=== PATIENT | male | born 1950 | race Hispanic/Latino ===

== ENCOUNTER 2021-09-21 06:42 | Day surgery (SDC) | payer BC, MEDICARE ==
[2021-09-15 12:03] LABS: BASOPHILS % (AUTO) 0.3 % (0.0-5.0); EOSINOPHILS % (AUTO) 3.7 % (0.0-8.0); HEMATOCRIT 41.2 % (42-54); LYMPHOCYTES % (AUTO) 22.3 % (21.0-51.0); MEAN CORPUSCULAR VOLUME 94.1 fL (79-99); NEUTROPHILS % (AUTO) 64.6 % (40.0-77.0); PLATELET COUNT (AUTO) 153 K/uL (130-400); RED BLOOD CELL COUNT(AUTO) 4.38 MIL/uL (4.50-6.20); RED CELL DISTRIBUTION WIDTH 13.5 % (11.0-15.5); WHITE BLOOD COUNT (AUTO) 6.8 K/uL (4.8-10.8)
[2021-09-15 12:08] LABS: APPEARANCE,URINE Clear (CLEAR); BILIRUBIN,URINE Negative (NEGATIVE); COLOR,URINE Yellow (YELLOW); GLUCOSE, URINE (UA) Negative (NEGATIVE); KETONES,URINE Negative (NEGATIVE); LEUKOCYTE ESTERASE ,URINE Trace (NEGATIVE); NITRATE,URINE Negative (NEGATIVE); OCCULT BLOOD,URINE Negative (NEGATIVE); PROTEIN,URINE Negative (NEGATIVE); UROBILINOGEN,URINE 0.2 mg/dL (0.2-1.0)
[2021-09-15 12:12] LABS: CREATININE 0.8 mg/dL (0.5-1.5)
[2021-09-15 12:14] LABS: INR 1.05 (0.85-1.15); PROTHROMBIN TIME 11.4 SEC (9.6-11.6)
[2021-09-15 12:37] LABS: BACTERIA,URINE Rare /HPF (None Seen); SQUAMOUS EPITHELIAL CELL,UR Few /HPF (0-2)
[2021-09-20 12:15] VITALS: BP 135/69
[~2021-09-21] VITALS: Ht 175.3 cm; Wt 87.5 kg
[2021-09-21] VITALS (15 sets, daily range): BP systolic 117–141; BP diastolic 58–70
[~2021-09-21 06:42] MED LIST: AMLO-258 PO; ASCO500T20 PO; ATOR40TA71 PO; CA/D1TAB7 PO; CINNAMON PO; EPLE50TA9 PO; FINA5TAB41 PO; LEVO500T90 PO; MAGN250T10 PO; MELA10TA2 PO; MINO2.5T3 PO; MONT-39 PO; NEBI20TA2 PO; NITR50CA PO; OLME-11 PO; OMEGA3 PO; TADA5TAB13 PO; TAMS-1 PO; TUMERIC PO; UBID200C18 PO; VALA500T42 PO; ZINC220T4 PO; [UNRECOGNIZED DRUG - OTHER] PO
[2021-09-21] MEDS ORDERED: CEFTRIAXONE 1G VIAL ONE (07:43)
[2021-09-21] MEDS ORDERED: LACTATED RINGERS 1000ML 1,000 ML IV ONE (07:43)
[2021-09-21] MEDS ORDERED: [UNRECOGNIZED DRUG - OTHER] IV SCH (08:00)
[2021-09-21] MEDS ORDERED: GENTAMICIN SULFATE IV SCH (08:00)
[2021-09-21] MEDS ORDERED: CEFTRIAXONE 1G VIAL IVP SCH (08:00)
[2021-09-21] MEDS ORDERED: SUCCINYLCHOLINE 200MG/10ML SYR ONE (08:07)
[2021-09-21] MEDS ORDERED: LIDOCAINE PF 100MG/5ML (2%) SYRINGE 5ML ONE (08:07)
[2021-09-21] MEDS ORDERED: DEXAMETHASONE SOD PHOSPHATE 10MG/ML 1ML VIAL ONE (08:07)
[2021-09-21] MEDS ORDERED: PROPOFOL 10 MG/ML 20ML VIAL IV ONE (08:08)
[2021-09-21] MEDS ORDERED: NEOSTIGMINE 5MG/5ML SYR IV ONE (08:08)
[2021-09-21] MEDS ORDERED: MIDAZOLAM HCL 1 MG/ML 2ML VIAL ONE (08:08)
[2021-09-21] MEDS ORDERED: GLYCOPYRROLATE 1 MG/5 ML SYRINGE ONE (08:08)
[2021-09-21] MEDS ORDERED: ONDANSETRON 4MG INJ ONE (08:08)
[2021-09-21] MEDS ORDERED: ROCURONIUM 10MG/1ML SYR 10 MG/ML ML ONE (08:08)
[2021-09-21] MEDS ORDERED: FENTANYL CITRATE PF 50 MCG/1 ML 2ML VIAL ONE (08:09)
[2021-09-21] MEDS ORDERED: EPHEDRINE SULFATE 50 MG/ML AMPULE ONE (10:16)
== END 2021-09-21 12:50 ==
LOC: DAH 06:42
PROVIDERS: ATTEND Urology
DX: N40.1 Benign prostatic hyperplasia with lower urinary tract symptoms (principal); N39.0 Urinary tract infection, site not specified; I10 Essential (primary) hypertension; J44.9 Chronic obstructive pulmonary disease, unspecified; Z88.1 Allergy status to other antibiotic agents; Z79.01 Long term (current) use of anticoagulants; Z79.899 Other long term (current) drug therapy
CPT/HCPCS: 36415; 52648; 71045; 80048; 81001; 85025; 85610; 85730; 87088; 87635; 93005; A4215; A4221; A4222; A4223; A4354; A4358; A4600; A4657; A4663 ×2; A4930 ×2; A6260; C1758; C9803; J0330; J0696; J1100; J1580; J2001; J2250; J2405; J2704; J2710; J3010; J3490 ×2; J7030; J7120 ×2